=== PATIENT | female | born 1945 | race Caucasian/White ===

== ENCOUNTER 2018-05-25 07:42 | Day surgery (SDC) | payer MEDICARE ==
[2018-05-25] MEDS ORDERED: PROPOFOL 10 MG/ML VIAL IV ONE (07:43)
[2018-05-25] MEDS ORDERED: LIDOCAINE 2% MDV (20MG/ML) 20ML VIAL IV ONE (07:43)
--- NOTE | 2018-05-25 15:31 | Operative Note ---
DATE OF SURGERY: 05/25/2018 OPERATION: COLONOSCOPY to the cecum with cold biopsy forceps polypectomy x1. INDICATION: Prior history of adenomatous polyps. The patient also with family history of colon cancer. She returns at this time for surveillance. ANESTHESIA: Intravenous sedation was administered by the department of anesthesiology and included Diprivan titrated to effect. PROCEDURE: Following informed consent from this alert individual including a discussion of the risks and benefits of the procedure and an opportunity for the patient to ask questions, the patient was in the left lateral decubitus position. A digital rectal examination was performed. No abnormalities were noted. Following this, the Olympus [id number] video colonoscope was inserted into the rectum without resistance. The rectal mucosa had a normal appearance with normal folds and distensibility. The colonoscope was advanced up through the colon to the level of the cecum without much difficulty. Throughout the bowel the mucosa appeared normal, the folds were normal, and the bowel was fairly well distensible. Abdominal pressure support was applied by the nursing staff to facilitate reaching the cecum. At the area of the appendiceal orifice, there was a diminutive 3-4 mm polyp noted which was removed with cold biopsy forceps. Retroflexion in the cecum was endoscopically unremarkable. Overall, the colon preparation was good. There was some retained liquid and semi-liquid stool noted which was suctioned and washed and visualization was adequate. From the cecum, the colonoscope was then withdrawal. No changes were noted throughout the bowel upon withdrawal. Retroflexion in the rectum was endoscopically normal. The instrument was straightened and removed. The patient tolerated the procedure well and was returned to the recovery area in stable condition. IMPRESSION: 1. A 3-4 mm cecal polyp at the appendiceal orifice removed with biopsy forceps. 2. Otherwise unremarkable colonoscopy to the cecum. RECOMMENDATIONS: The patient was advised to have surveillance colonoscopy in 5 years' time or sooner should problems arise. Further recommendations may be forthcoming pending results of pathology. Followup will be with Dr. Maximino Curtis. As always, thank you for allowing me to participate in the care of your patient. CC: DO ALVARO Alvarez
== END 2018-05-25 10:00 | disposition home or self-care (01) ==
LOC: HOP 07:42
PROVIDERS: ATTEND Internal Medicine Gastroenterology
DX: Z12.11 Encounter for screening for malignant neoplasm of colon (principal); Z86.010 Personal history of colon polyps; Z80.0 Family history of malignant neoplasm of digestive organs; D12.0 Benign neoplasm of cecum; M19.90 Unspecified osteoarthritis, unspecified site